=== PATIENT | male | born 1965 | race African-American/Black ===

== ENCOUNTER 2017-03-26 12:47 | Emergency (ER) | payer SELFPAY ==
[~2017-03-26] VITALS: Ht 185.4 cm; Wt 86.2 kg
[~2017-03-26 12:47] MED LIST: KEFLEX500 MG ORAL
[2017-03-26 13:10] VITALS: BP 110/71
[2017-03-26 13:21] LABS: APPEARANCE,URINE SLIGHTLY CLOUDY; KETONES,URINE NEGATIVE (NEGATIVE); LEUKOCYTE ESTERASE ,URINE 1+ (NEGATIVE); NITRITE,URINE NEGATIVE (NEGATIVE); PH,URINE 6.5 (4.5-8.0); PROTEIN,URINE NEGATIVE (NEGATIVE); UROBILINOGEN,URINE 1 MG/DL (0.0-1.0)
[2017-03-26 13:48] LABS: BACTERIA,URINE FEW /HPF; MUCUS,URINE MODERATE /LPF (NONE/OCC); SQUAMOUS EPITHELIAL CELL,UR FEW /LPF (NONE/OCC)
[2017-03-26] MEDS ORDERED: TRAMADOL HCL50 MG ORAL (14:01)
[2017-03-26] MEDS ORDERED: CEPHALEXIN500 MG ORAL (14:01)
[2017-03-26 14:06] VITALS: BP 110/71
--- NOTE | 2017-03-26 16:59 | Emergency Room Report ---
History of Present Illness General Chief Complaint: Pain Source: Patient Present Illness HPI The patient is a 51-year-old male presenting with left lower back pain. The patient states that he was diagnosed with pyelonephritis one year prior and this feels the same. Pain began this morning. It is described as 8/10 dull ache which begins in the left lower back and radiates to the left lower abdomen. No known provoking or relieving factors. He denies dysuria, hematuria , penile discharge, nausea, vomiting, fever, chills Allergies: Coded Allergies: No Known Allergies (Unverified , 12/20/14) Patient History Past Medical History: see triage record Pertinent Family History: none Reviewed Nursing Documentation: PMH: Agreed, PSxH: Agreed Nursing Documentation-PMH Past Medical History: No Stated History Review of Systems All Other Systems: negative except mentioned in HPI Physical Exam Vital Signs Date Time Temp Pulse Resp B/P Pulse Ox O2 Delivery O2 Flow Rate FiO2 03/26/17 12:51 97.9 76 14 110/71 99 Room Air Sp02 EP Interpretation: reviewed, normal General Appearance: no apparent distress, alert, GCS 15, non-toxic Head: normocephalic, atraumatic Eyes: bilateral eye PERRL, bilateral eye normal inspection ENT: hearing grossly normal, normal pharynx, no angioedema, normal voice Neck: full range of motion, supple/symm/no masses Respiratory: chest non-tender, lungs clear, normal breath sounds, speaking full sentences Gastrointestinal: normal bowel sounds, non tender, soft, non-distended, no guarding, no rebound Rectal: deferred Genitourinary: CVA tenderness (L) Musculoskeletal: back normal, gait/station normal, normal range of motion, non- tender Neurologic: alert, oriented x3, responsive, motor strength/tone normal, sensory intact, speech normal Psychiatric: judgement/insight normal, memory normal, mood/affect normal, no suicidal/homicidal ideation Skin: normal color, no rash, warm/dry, well hydrated Medical Decision Making PA Attestation Dr. Lopez is my supervising physician. Patient management was discussed with my supervising physician Diagnostic Impression: Primary Impression: Pyelonephritis ER Course The patient is a 51-year-old male presenting with left lower back pain. Ddx considered include but not limited to UTI, pyelonephritis/nephrosis, lumbar strain, degenerative disease, among others PE: Vitals are within normal limits. No apparent distress. Abdomen is soft and nontender. There is a periumbilical surgical scar. There is left-sided CVA tenderness. No midline tenderness Otherwise exam is unremarkable Urinalysis shows occult blood and few bacteria The patient Is given a prescription for pain medication and also antibiotics for likely UTI. He was informed this may also be a kidney stone. He is to followup with primary doctor. ER precautions are given Laboratory Tests Test 03/26/17 12:57 Urine Color Yellow Urine Appearance Slightly cloudy Urine pH 6.5 (4.5-8.0) Urine Specific [place] 1.015 (1.005-1.035) Urine Protein Negative (NEGATIVE) Urine Glucose (UA) Negative (NEGATIVE) Urine Ketones Negative (NEGATIVE) Urine Occult Blood 3+ (NEGATIVE) H Urine Nitrite Negative (NEGATIVE) Urine Bilirubin Negative (NEGATIVE) Urine Urobilinogen 1 MG/DL (0.0-1.0) H Urine Leukocyte Esterase 1+ (NEGATIVE) H Urine RBC 10-15 /HPF (0 - 0) H Urine WBC 2-4 /HPF (0 - 0) Urine Squamous Epithelial Cells Few /LPF (NONE/OCC) Urine Bacteria Few /HPF (NONE) Urine Mucus Moderate /LPF (NONE/OCC) H Last Vital Signs Date Time Temp Pulse Resp B/P Pulse Ox O2 Delivery O2 Flow Rate FiO2 03/26/17 14:06 97.9 76 14 110/71 99 Room Air Status: improved Disposition: HOME, SELF-CARE Condition: Improved Scripts Cephalexin* (KEFLEX*) 500 Mg Capsule 500 MG ORAL EVERY 6 HOURS, #28 CAP Prov: TERZIAN,SHAHEEN P.A. 03/26/17 Tramadol Hcl* (ULTRAM*) 50 Mg Tablet 50 MG ORAL Q6H Y for For Pain, #10 TAB 0 Refills Prov: TERZIAN,SHAHEEN P.A. 03/26/17 Referrals: NOT CHOSEN [facility]/,REFERRING (PCP) Patient Instructions: Pyelonephritis, Adult Additional Instructions: I discussed my findings with the patient. All questions and concerns have been answered. Treatment and medication compliance have been addressed. I advised the patient that they need to follow up with PMD in 3-5 days. Return to ED if symptoms worsen, new symptoms arise, or if needed for any reason. Patient verbalized understanding of discharge instructions. The patient was informed he will likely need referral to urology SHAHEEN VIRK Mar 26, 2017 16:59
== END 2017-03-26 14:07 | disposition home or self-care (01) ==
LOC: EMR 13:45
DX: N12 Tubulo-interstitial nephritis, not specified as acute or chronic (principal)
CPT/HCPCS: 81003; 99284

== ENCOUNTER 2018-03-29 19:09 | Emergency (ER) | payer MEDICAID ==
[~2018-03-29] VITALS: Ht 185.4 cm; Wt 89.8 kg
[~2018-03-29 19:09] MED LIST changes: +CEPHALEXIN500 MG ORAL; +TRAMADOL HCL50 MG ORAL
[2018-03-29 19:40] VITALS: BP 110/84
[2018-03-29] MEDS ORDERED: Lidocaine 1% Plain 30 ml INJ ONE (19:45)
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
[2018-03-29] MEDS ORDERED: CLINDAMYCIN HC300 MG ORAL (20:25)
[2018-03-29 20:37] VITALS: BP 112/88
[2018-03-29 20:38] VITALS: BP 110/84
== END 2018-03-29 20:38 | disposition home or self-care (01) ==
LOC: EMR 19:38
DX: S01.511A Laceration without foreign body of lip, initial encounter (principal); F17.200 Nicotine dependence, unspecified, uncomplicated; V49.9XXA Car occupant (driver) (passenger) injured in unspecified traffic accident, initial encounter; Y92.410 Unspecified street and highway as the place of occurrence of the external cause
CPT/HCPCS: 12013; 99283; J2001; Z7502

== ENCOUNTER 2018-05-01 20:50 | Emergency (ER) | payer MEDICAID, OTHER ==
[~2018-05-01] VITALS: Ht 185.4 cm; Wt 86.2 kg
[~2018-05-01 20:50] MED LIST changes: +CLINDAMYCIN HC300 MG ORAL
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
[2018-05-01] MEDS ORDERED: CLINDAMYCIN HC300 MG ORAL (21:45)
[2018-05-01] MEDS ORDERED: Clindamycin 150mg cap ORAL ONE (21:45)
[2018-05-01 22:10] VITALS: BP 124/70
[2018-05-02 00:28] VITALS: BP 124/70
== END 2018-05-02 00:31 | disposition home or self-care (01) ==
LOC: EMR 21:13
DX: S01.511A Laceration without foreign body of lip, initial encounter (principal); L08.9 Local infection of the skin and subcutaneous tissue, unspecified; V49.9XXA Car occupant (driver) (passenger) injured in unspecified traffic accident, initial encounter; Y92.410 Unspecified street and highway as the place of occurrence of the external cause
CPT/HCPCS: 99282

== ENCOUNTER 2019-05-05 22:44 | Emergency (ER) | payer SELFPAY ==
[~2019-05-05] VITALS: Ht 185.4 cm; Wt 95.3 kg
--- NOTE | 2019-05-05 23:44 | Emergency Room Report ---
History of Present Illness General Chief Complaint: Earache Source: Patient Present Illness HPI This is a 54-year-old male with no significant past medical history. He presents with chief complaint of unable to hear out of left ear. Onset for a week and a half. No nausea no vomiting. He wear earplugs and also uses a Q- tip. No trauma. No cough or congestion. No drainage. Allergies: Coded Allergies: No Known Allergies (Unverified , 12/20/14) Patient History Past Medical History: see triage record, old chart reviewed Past Surgical History: none Pertinent Family History: none Social History: Reports: smoking Immunizations: other Reviewed Nursing Documentation: PMH: Agreed; PSxH: Agreed Nursing Documentation-PMH Past Medical History: No Stated History Review of Systems Eye: Denies: eye pain, blurred vision ENT: Reports: ear pain; Denies: nose congestion, throat swelling Respiratory: Denies: cough, shortness of breath Cardiovascular: Denies: chest pain, palpitations Gastrointestinal: Denies: abdominal pain, diarrhea, nausea, vomiting Musculoskeletal: Denies: back pain, joint pain Skin: Denies: rash Neurological: Denies: headache, numbness Endocrine: Denies: increased thirst, increased urine Hematologic/Lymphatic: Denies: easy bruising All Other Systems: negative except mentioned in HPI Physical Exam Vital Signs Date Time Temp Pulse Resp B/P (MAP) Pulse Ox O2 Delivery O2 Flow Rate FiO2 05/05/19 22:46 98.8 78 18 103/70 (81) 94 Vitals normal Sp02 EP Interpretation: reviewed, normal General Appearance: well appearing, no apparent distress, alert Head: normocephalic, atraumatic Eyes: bilateral eye PERRL, bilateral eye EOMI ENT: hearing grossly normal, normal pharynx, other - biLateral canal obstructed with cerumen Neck: full range of motion, supple, no meningismus Respiratory: chest non-tender, lungs clear, normal breath sounds Cardiovascular #1: regular rate, rhythm, no murmur Gastrointestinal: normal bowel sounds, non tender, no mass, no organomegaly, no bruit, non-distended Musculoskeletal: back normal, gait/station normal, normal range of motion Psychiatric: mood/affect normal Procedures Additional Procedure Procedure Narrative Procedure: Cerumen disimpaction Indication: Cerumen impaction Description: I irrigated both ears with normal saline. There copious amount of cerumen mostly in left canal. Patient tolerated procedure without any problem. No complication. Medical Decision Making Diagnostic Impression: Primary Impression: Impacted cerumen of both ears ER Course Patient with cerumen impaction. No trauma. No foreign body. Will discharge home. Last Vital Signs Date Time Temp Pulse Resp B/P (MAP) Pulse Ox O2 Delivery O2 Flow Rate FiO2 05/05/19 22:46 98.8 78 18 103/70 (81) 94 Status: improved Disposition: HOME, SELF-CARE Condition: Stable Referrals: NOT CHOSEN [facility]/,REFERRING (PCP) Additional Instructions: Follow-up with your doctor in 7 days. Return if symptoms worsen. Cole Kowalski MD May 05, 2019 23:44
[2019-05-05 23:45] VITALS: BP 103/70
== END 2019-05-05 23:45 | disposition home or self-care (01) ==
LOC: EMR 23:07
DX: H61.23 Impacted cerumen, bilateral (principal); F17.200 Nicotine dependence, unspecified, uncomplicated
CPT/HCPCS: 99282

== ENCOUNTER 2020-11-18 22:14 | Emergency (ER) | payer SELFPAY ==
[~2020-11-18] VITALS: Ht 185.4 cm; Wt 86.2 kg
--- NOTE | 2020-11-18 22:52 | NUR ---
at bedside for pt eval
--- NOTE | 2020-11-18 22:54 | Emergency Room Report ---
History of Present Illness General Chief Complaint: Generalized Weakness Source: Patient Present Illness HPI This is a 55-year-old male who is left-hand dominant. He works as a long[employer]. He presents with chief complaint of left finger pain. Onset yesterday. It started throbbing and now is more swollen. Hard him to bend at the tip. Pain is 8 out of 10. Worse with palpation. Better with rest. No dr sharan. No fever chills. Does not bite his finger. Allergies: Coded Allergies: No Known Allergies (Unverified , 12/20/14) COVID-19 Screening Contact w/high risk pt: No Experienced COVID-19 symptoms?: No COVID-19 Testing performed REPAIRER PUMP: No Patient History Past Medical History: see triage record, old chart reviewed Past Surgical History: none Pertinent Family History: none Social History: Denies: smoking Immunizations: other Reviewed Nursing Documentation: PMH: Agreed; PSxH: Agreed Review of Systems Eye: Denies: eye pain, blurred vision ENT: Denies: ear pain, nose congestion, throat swelling Respiratory: Denies: cough, shortness of breath Cardiovascular: Denies: chest pain, palpitations Gastrointestinal: Denies: abdominal pain, diarrhea, nausea, vomiting Musculoskeletal: Reports: joint pain, muscle pain; Denies: back pain Skin: Denies: rash Neurological: Denies: headache, numbness Endocrine: Denies: increased thirst, increased urine Hematologic/Lymphatic: Denies: easy bruising All Other Systems: negative except mentioned in HPI Physical Exam Vital Signs Date Time Temp Pulse Resp B/P (MAP) Pulse Ox O2 Delivery O2 Flow Rate FiO2 11/18/20 22:20 98.2 81 18 144/82 (102) 96 Room Air Vitals unremarkable Sp02 EP Interpretation: reviewed, normal General Appearance: well appearing, no apparent distress, alert Head: normocephalic, atraumatic Eyes: bilateral eye PERRL, bilateral eye EOMI ENT: hearing grossly normal, normal pharynx Neck: full range of motion, supple, no meningismus Respiratory: chest non-tender, lungs clear, normal breath sounds Cardiovascular #1: regular rate, rhythm, no murmur Gastrointestinal: normal bowel sounds, non tender, no mass, no organomegaly, no bruit, non-distended Musculoskeletal: back normal, normal range of motion, gait/station normal, other - Left index finger: Along the radial aspect the finger there is some tenderness and swelling. No tenderness to the pulp Psychiatric: mood/affect normal Procedures Incision and Drainage Incision and Drainage : Consent: Verbal Site: Left index finger Blade Size: 11 I & D Procedure: betadine prep Wound Location: other - Left index finger Patient Tolerated: Well Complications: None Progress I saw the finger in Betadine solution. Using 11 blade scalpel I ran along the nail on the radial aspect of the index finger. There are small amount of pus expressed. Patient said he felt better afterward. No complication. Medical Decision Making Diagnostic Impression: Primary Impression: Paronychia of finger Qualified Codes: L03.012 - Cellulitis of left finger ER Course Patient with a paronychia of his left index finger. No evidence of felon. Will discharge home. Last Vital Signs Date Time Temp Pulse Resp B/P (MAP) Pulse Ox O2 Delivery O2 Flow Rate FiO2 11/18/20 22:20 98.2 81 18 144/82 (102) 96 Room Air Status: improved Disposition: HOME, SELF-CARE Condition: Stable Scripts Hydrocodone/Acetaminophen 5-325* (HYDROCODONE/ACETAMINOPHEN 5-325*) 1 Each Tablet 1 TAB ORAL Q6H PRN for For Pain, #10 TAB 0 Refills Prov: Cole Kowalski MD 11/18/20 Trimethoprim/Sulfamethoxazole 160/800* (BACTRIM DS TABLET*) 1 Each Tablet 1 TAB ORAL Q12H, #14 TAB 0 Refills Prov: Cole Kowalski MD 11/18/20 Referrals: NOT CHOSEN [facility]/,REFERRING (PCP) Additional Instructions: Keep wound clean. Clean first with hydroperoxide and apply antibiotic ointment. Follow-up with your doctor in 2 to 3 days for recheck. Return if symptoms worsen. Cole Kowalski MD Nov 18, 2020 22:54
[2020-11-18] MEDS ORDERED: BACTRIM DS TAB1 EAC1 ORAL (23:11)
[2020-11-18] MEDS ORDERED: HYDROCODON-ACE1 EA15 ORAL (23:11)
[2020-11-18] MEDS ORDERED: Bactrim-DS 1 tab ORAL ONE (23:15)
[2020-11-18] MEDS ORDERED: HYDROcodone/Acetamin 5/325 tab ORAL ONE (23:15)
[2020-11-18 23:30] VITALS: BP 144/82
== END 2020-11-18 23:31 | disposition home or self-care (01) ==
LOC: EMR 22:25
DX: L03.012 Cellulitis of left finger (principal)
CPT/HCPCS: 99282